=== PATIENT | female | born 1965 | race Caucasian/White ===

== ENCOUNTER 2017-02-22 20:28 | Emergency (ER) | payer BC ==
--- NOTE | 2017-02-22 21:18 | ED PDOC ---
Arrival/HPI - General Historian: Patient <Ash Milton - Last Filed: 02/22/17 23:11> <Keyla Smith - Last Filed: 02/22/17 23:16> - General Chief Complaint: GI Problem Time Seen by Provider: 02/22/17 20:48 - History of Present Illness Narrative History of Present Illness (Text): 02/22/17 21:15 51yo F w/ no PMhx on no medications, PMD in [facility] but she cannot remember the name, is coming in for a 2d history of nausea and vomiting. Patient states she has thrown up 5 times today, NBNB and cannot keep anything down. She decided to come into the ER because she got dizzy, and then threw up while she was driving home. She states she has not eaten out recently and has not eaten any new foods. No one else at home or work has this problem. 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 Denies fevers/chills, [place], CP, SOB, abdominal pain, diarrhea, constipation, burning with urination, abdominal distention. PMD: In [facility]; seen 4 months ago no problems Surgeries: 2 in [place] FamHx: Denies Allergies: none Meds: None Social: lives at home with , denies EtOH and Drinking (Ash Milton) Past Medical History - Provider Review Nursing Documentation Reviewed: Yes - Travel History Have you recently traveled outside [place] w/in the past 3 mons?: No - Past History Past History: No Previous - Infectious Disease Hx of Infectious Diseases: None - Psychiatric Hx Substance Use: No - Surgical History Hx Section: Yes (x 2) - Anesthesia Hx Anesthesia: No Hx Anesthesia Reactions: No Hx Malignant Hyperthermia: No <Ash Milton - Last Filed: 02/22/17 23:11> Family/Social History - Physician Review Nursing Documentation Reviewed: Yes Family/Social History: No Known Family HX Smoking Status: Never Smoked Hx Alcohol Use: No Hx Substance Use: No <Ash Milton - Last Filed: 02/22/17 23:11> Allergies/Home Meds <Ash Milton - Last Filed: 02/22/17 23:11> <Keyla Smith - Last Filed: 02/22/17 23:16> Allergies/Adverse Reactions: Allergies No Known Allergies Allergy (Verified 02/22/17 20:57) Review of Systems - Physician Review All systems were reviewed & negative as marked: Yes - Review of Systems Gastrointestinal: Vomiting <Ash Milton - Last Filed: 02/22/17 23:11> Physical Exam Temperature: Afebrile Blood Pressure: Normal Pulse: Regular Respiratory Rate: Normal Appearance: Positive for: Non-Toxic Pain Distress: None Mental Status: Positive for: Alert and Oriented X 3 - Systems Exam Head: Present: Atraumatic (actively wretching in bed ) Pupils: Present: PERRL Extroacular Muscles: Present: EOMI Conjunctiva: Present: Normal Mouth: Present: Moist Mucous Membranes Nose (Internal): Present: Normal Inspection Neck: Present: Normal Range of Motion Respiratory/Chest: Present: Clear to Auscultation, Good Air Exchange. No: Respiratory Distress, Accessory Muscle Use Cardiovascular: Present: Regular Rate and Rhythm, Murmurs Abdomen: Present: Normal Bowel Sounds. No: Tenderness, Distention, Peritoneal Signs, Rebound, Guarding, McBurney's Point Tender, Rovsing's Sign Present, Hernias Back: No: CVA Tenderness Upper Extremity: Present: Normal Inspection. No: Cyanosis, Edema Lower Extremity: Present: Normal Inspection. No: Edema Neurological: Present: GCS=15, CN II-XII Intact, Speech Normal Skin: Present: Warm, Dry Psychiatric: Present: Alert, Oriented x 3 <Ash Milton - Last Filed: 02/22/17 23:11> Medical Decision Making <Ash Milton - Last Filed: 02/22/17 23:11> <Keyla Smith - Last Filed: 02/22/17 23:16> ED Course and Treatment: 02/22/17 21:20 Will order CBC CMP Lipase Urinalysis All Vitals stable Patient is wretching in bed Will give Zofran Will reassess after labs 02/22/17 23:12 CBC WNL: small left shift patient will be endorsed to Dr. Almonte case discussed with Dr. Smith patient is currently hemodynamically stable resting comfortably in bed; sleeping ; no longer wretching (Ash Milton) 02/22/17 23:15 Patient seen and examined with vertigo and vomiting. Normal neuro exam; other exam is unremarkable. Awaiting labs. Given zofran and IVF and meclizine. Will endorse to Dr. Almonte to follow results and re-evaluate. (Keyla Smith) - Lab Interpretations Lab Results: 02/22/17 22:20 Lab Results 02/22/17 22:20: WBC 6.7, RBC 5.06, Hgb 12.6, Hct 37.6, MCV 74.3 L, MCH 24.9 L, MCHC 33.5, RDW 20.9 H, Plt Count 152, Gran % 48.4 L, Lymph % (Auto) 43.6 H, [place] % (Auto) 4.3, Eos % (Auto) 2.5, Baso % (Auto) 1.2, Gran # 3.22, Lymph # 2.9 , [place] # 0.3, Eos # 0.2, Baso # 0.08 - RAD Interpretation Radiology Orders: 02/22/17 22:59 Brain [HEAD W/O CONTRAST] [CT] Stat - Medication Orders Current Medication Orders: Sodium Chloride (Sodium Chloride 0.9%) 1,000 mls @ 999 mls/hr IV .Q1H1M STA Stop: 02/22/17 23:59 Discontinued Medications Famotidine (Pepcid) 20 mg IVP STAT STA Stop: 02/22/17 22:01 Meclizine HCl (Antivert) 12.5 mg PO STAT STA Stop: 02/22/17 23:00 Ondansetron HCl (Zofran Inj) 8 mg IVP STAT STA Stop: 02/22/17 20:58 - PA / ENROBER / Resident Statement RANDOLPH has reviewed & agrees with the documentation as recorded. RANDOLPH has examined the patient and agrees with the treatment plan. <Keyla Smith - Last Filed: 02/22/17 23:16> Disposition/Present on Arrival - Present on Arrival Any Indicators Present on Arrival: No History of DVT/PE: No History of Uncontrolled Diabetes: No Urinary Catheter: No History of Decub. Ulcer: No History Surgical Site Infection Following: None - Disposition Have Diagnosis and Disposition been Completed?: No <Ash Milton - Last Filed: 02/22/17 23:11> - Present on Arrival Any Indicators Present on Arrival: No - Disposition Have Diagnosis and Disposition been Completed?: No Disposition Time: 23:00 <Keyla Smith - Last Filed: 02/22/17 23:16> - Disposition Diagnosis: Vertigo Patient Problems: Current Active Problems Problem Status Onset Vertigo Acute Condition: STABLE Discharge Instructions (ExitCare): Vertigo (ED) Additional Instructions: Take the medications as prescribed. Follow up with your primary care doctor. Return to the emergency department if any new concerning symptoms. Prescriptions: Meclizine [Antivert] 1 tab PO TID PRN #15 tab PRN Reason: Nausea/Vomiting Ondansetron ODT [Zofran ODT] 1 tab PO Q8H PRN #10 odt PRN Reason: Nausea/Vomiting
[2017-02-22 22:42] LABS: BASO # 0.08 K/mm3 (0.0-2.0); BASO % 1.2 % (0.0-3.0); EOS # 0.2 (0.0-0.7); EOS % 2.5 % (1.5-5.0); GRAN # 3.22 (1.4-6.5); GRAN % 48.4 % (50.0-68.0); HEMOGLOBIN 12.6 gm/dL (12.0-16.0); LYMPH # 2.9 (1.2-3.4); LYMPH % 43.6 % (22.0-35.0); MEAN CELL VOLUME 74.3 fL (80.0-105.0); MEAN CORPUSCULAR HEMOGLOBIN 24.9 pg (25.0-35.0); MEAN CORPUSCULAR HGB CONC 33.5 g/dl (31.0-37.0); MONO # 0.3 (0.1-0.6); MONO % 4.3 % (1.0-6.0); PLATELET COUNT 152 10^3/uL (120.0-450.0); RBC 5.06 10^6/uL (3.5-6.1); RED CELL DISTRIBUTION WIDTH 20.9 % (11.5-14.5); WHITE BLOOD COUNT 6.7 10^3/ul (4.5-11.0)
[2017-02-22] MEDS ORDERED: Sodium Chloride 0.9% 1,000 ML IV STA (22:59)
--- NOTE | 2017-02-22 23:29 | ED PDOC ---
Physical Exam Vital Signs Reviewed: Yes Vital Signs Temp Pulse Resp BP Pulse Ox 02/22/17 20:45 97.9 F 61 20 140/78 100 Temperature: Afebrile Blood Pressure: Normal Pulse: Regular Respiratory Rate: Normal Appearance: Positive for: Well-Appearing, Non-Toxic, Comfortable Pain Distress: None Mental Status: Positive for: Alert and Oriented X 3 Medical Decision Making ED Course and Treatment: 02/22/17 23:28 Case endorsed to me by . A 51 year old female who presents to the emergency department complaining of dizziness and vomiting, likely due to vertigo. Pending CT Head, labs, reevaluation and final disposition. - Lab Interpretations Lab Results: 02/22/17 22:20 Lab Results 02/22/17 22:20: WBC 6.7, RBC 5.06, Hgb 12.6, Hct 37.6, MCV 74.3 L, MCH 24.9 L, MCHC 33.5, RDW 20.9 H, Plt Count 152, Gran % 48.4 L, Lymph % (Auto) 43.6 H, [place] % (Auto) 4.3, Eos % (Auto) 2.5, Baso % (Auto) 1.2, Gran # 3.22, Lymph # 2.9 , [place] # 0.3, Eos # 0.2, Baso # 0.08 - RAD Interpretation Radiology Orders: 02/22/17 22:59 Brain [HEAD W/O CONTRAST] [CT] Stat - Medication Orders Current Medication Orders: Sodium Chloride (Sodium Chloride 0.9%) 1,000 mls @ 999 mls/hr IV .Q1H1M STA Stop: 02/22/17 23:59 Discontinued Medications Famotidine (Pepcid) 20 mg IVP STAT STA Stop: 02/22/17 22:01 Meclizine HCl (Antivert) 12.5 mg PO STAT STA Stop: 02/22/17 23:00 Ondansetron HCl (Zofran Inj) 8 mg IVP STAT STA Stop: 02/22/17 20:58 Disposition/Present on Arrival - Present on Arrival Any Indicators Present on Arrival: No History of DVT/PE: No History of Uncontrolled Diabetes: No Urinary Catheter: No History of Decub. Ulcer: No History Surgical Site Infection Following: None - Disposition Have Diagnosis and Disposition been Completed?: Yes Diagnosis: Vertigo Disposition: HOME/ ROUTINE Disposition Time: 02:00 Condition: STABLE Discharge Instructions (ExitCare): Vertigo (ED) Additional Instructions: Take the medications as prescribed. Follow up with your primary care doctor. Return to the emergency department if any new concerning symptoms. Prescriptions: Meclizine [Antivert] 1 tab PO TID PRN #15 tab PRN Reason: Nausea/Vomiting Ondansetron ODT [Zofran ODT] 1 tab PO Q8H PRN #10 odt PRN Reason: Nausea/Vomiting
[2017-02-23 00:01] LABS: ALB/GLOB RATIO 1.3 (1.1-1.8); ALBUMIN 4.3 g/dL (3.0-4.8); ALT/SGPT 27 U/L (7-56); AST/SGOT 30 U/L (15-39); BLOOD UREA NITROGEN 14 mg/dL (7-21); CALCIUM 9.4 mg/dL (8.4-10.5); GFR AFRICAN-AMERICAN > 60; GFR NON-AFRICAN AMERICAN > 60; LIPASE 103 U/L (23-300)
[2017-02-23 00:11] LABS: TROPONIN I < 0.01 ng/mL
[2017-02-23 02:02] VITALS: BP 135/80; PULSE 70; TEMP 98.2; O2SAT 99
[2017-02-23 02:03] VITALS: RESP 18
--- NOTE | 2017-02-23 09:44 | CT ---
PROCEDURE: CT HEAD WITHOUT CONTRAST. HISTORY: dizzy COMPARISON: None available. TECHNIQUE: Axial computed tomography images were obtained through the head/brain without intravenous contrast. Radiation dose: Total exam DLP = 688 mGy-cm. This CT exam was performed using one or more of the following dose reduction techniques: Automated exposure control, adjustment of the mA and/or kV according to patient size, and/or use of iterative reconstruction technique. FINDINGS: HEMORRHAGE: No intracranial hemorrhage. BRAIN: No mass effect or edema. No atrophy or chronic microvascular ischemic changes. VENTRICLES: Unremarkable. No hydrocephalus. CALVARIUM: Unremarkable. PARANASAL SINUSES: Unremarkable as visualized. No significant inflammatory changes. MASTOID AIR CELLS: Unremarkable as visualized. No inflammatory changes. OTHER FINDINGS: The report concurs with the preliminary [facility] report IMPRESSION: Normal CT of the Head.
--- NOTE | 2017-02-23 12:30 | CARD ---
APPROVED REPORT EKG Measurement Heart [id number] <Conclusion> Normal sinus rhythm Possible Left atrial enlargement RSR' or QR pattern in V1 suggests right ventricular conduction delay Possible Anteroseptal infarct, age undetermined Abnormal ECG
== END 2017-02-23 02:03 | disposition home or self-care (01) ==
LOC: ED 20:28
DX: R42 Dizziness and giddiness (principal)
CPT/HCPCS: 70450; 80053; 82550; 83615; 83690; 84484; 85025; 93005; 96374; 96375; 99284; J2405; J7040